=== PATIENT | female | born 1985 | race American Indian/Alaskan Native ===

== ENCOUNTER 2018-03-30 09:15 | Emergency (ER) | payer BC ==
[2018-03-30 09:42] VITALS: TEMP 98.9; O2SAT 100
[2018-03-30] MEDS ORDERED: Sodium Chloride 0.9% 1,000 ML IV ONE (09:53)
[2018-03-30 10:06] LABS: BASO # 0.1 K/uL (0.0-0.2); BASO % 0.5 % (0.0-2.0); EOS # 0.3 K/uL (0.0-0.7); EOS % 2.6 % (0.0-4.0); HEMOGLOBIN 13.2 g/dL (11.0-16.0); LYMPH # 1.3 K/uL (1.0-4.3); MEAN CELL VOLUME 94.2 fL (81.0-99.0); MEAN CORPUSCULAR HEMOGLOBIN 30.8 pg (27.0-31.0); MEAN CORPUSCULAR HGB CONC 32.7 g/dL (33.0-37.0); MEAN PLATELET VOLUME 7.1 fL (7.2-11.7); MONO # 0.6 K/uL (0.0-0.8); MONO % 5.5 % (0.0-10.0); NEUT # 8.9 K/uL (1.8-7.0); NEUT % 79.4 % (50.0-75.0); RBC 4.28 Mil/uL (3.80-5.20); RED CELL DISTRIBUTION WIDTH 13.5 % (11.5-14.5); WHITE BLOOD COUNT 11.2 K/uL (4.8-10.8)
--- NOTE | 2018-03-30 10:17 | RAD ---
HISTORY: CP COMPARISON: None available TECHNIQUE: Chest, one view. FINDINGS: LUNGS: No focal consolidation. Please note that chest x-ray has limited sensitivity for the detection of pulmonary masses. PLEURA: No significant pleural effusion identified. No definite pneumothorax . CARDIOVASCULAR: Heart size appears within normal limits. No significant atherosclerotic calcification present. OSSEOUS STRUCTURES: No acute osseous abnormality identified. VISUALIZED UPPER ABDOMEN: Unremarkable. OTHER FINDINGS: None. IMPRESSION: No focal consolidation.
[2018-03-30 10:18] LABS: ALB/GLOB RATIO 1.3 (1.0-2.1); ALBUMIN 4.5 g/dL (3.5-5.0); ALT/SGPT 17 U/L (9-52); AST/SGOT 19 U/L (14-36); BLOOD UREA NITROGEN 10 mg/dL (7-17); CALCIUM 8.9 mg/dl (8.6-10.4); GFR NON-AFRICAN AMERICAN > 60
[2018-03-30 10:30] LABS: CK-MB 0.57 ng/mL (0.0-3.38)
[2018-03-30] MEDS ORDERED: Sodium Chloride 0.9% 1,000 ML ONE (10:31)
--- NOTE | 2018-03-30 11:15 | C.PDOC ---
History Of Present Illness 33 y/o female presents to the ER complaining of epigastric abdominal pain which began approximately 8 am today. Patient describes the pain as burning and squeezing sensation. Patient reports that the pain radiates up to her chest. She notes that she has associated headache, nausea, and 3 episodes of vomiting. Patient denies having fever,chills, cough, CP,SOB, palpitations, diarrhea, dysuria, and hematuria. Time Seen by Provider: 03/30/18 09:20 Chief Complaint (Nursing): Abdominal Pain History Per: Patient History/Exam Limitations: no limitations Onset/Duration Of Symptoms: Hrs Current Symptoms Are (Timing): Still Present Severity: Moderate Past Medical History Reviewed: Historical Data, Nursing Documentation, Vital Signs Vital Signs: Last Vital Signs Temp 98.9 F 03/30/18 09:30 Pulse 69 03/30/18 09:30 Resp 20 03/30/18 09:30 BP 118/79 03/30/18 09:30 Pulse Ox 100 03/30/18 09:30 - Medical History PMH: Back Problems Other Surgeries: Hx of surgeries Family History: States: No Known Family Hx - Social History Hx Alcohol Use: Yes Hx Substance Use: No Review Of Systems Except As Marked, All Systems Reviewed And Found Negative. Constitutional: Negative for: Fever, Chills Cardiovascular: Negative for: Chest Pain, Palpitations Respiratory: Negative for: Cough, Shortness of Breath Gastrointestinal: Positive for: Nausea, Vomiting, Abdominal Pain. Negative for: Diarrhea Genitourinary: Negative for: Dysuria, Hematuria, Vaginal Discharge, Vaginal Bleeding Physical Exam - Physical Exam Appears: Other (mildly anxious, speaking in full sentences) Skin: Normal Color, Warm, Dry Head: Atraumatic, Normacephalic Eye(s): bilateral: Normal Inspection Nose: Normal Oral Mucosa: Moist Neck: Supple Chest: Symmetrical Cardiovascular: Rhythm Regular Respiratory: Normal Breath Sounds, No Rales, No Rhonchi, No Wheezing Gastrointestinal/Abdominal: Soft, Tenderness (mild epigastric and LUQ tenderness), No Guarding, No Rebound, Other (negative Payne's, negative McBurney's) Neurological/Psych: Oriented x3, Normal Speech ED Course And Treatment - Laboratory Results Result Diagrams: 03/30/18 10:02 03/30/18 10:02 Lab Results: Troponin I < 0.0120 ng/mL (0.00-0.120) 03/30/18 10:02 Total Bilirubin 0.7 mg/dL (0.2-1.3) 03/30/18 10:02 AST 19 U/L (14-36) 03/30/18 10:02 ALT 17 U/L (9-52) 03/30/18 10:02 Alkaline Phosphatase 72 U/L (38-126) 03/30/18 10:02 Total Protein 7.9 g/dL (6.3-8.3) 03/30/18 10:02 Albumin 4.5 g/dL (3.5-5.0) 03/30/18 10:02 Globulin 3.4 gm/dL (2.2-3.9) 03/30/18 10:02 Albumin/Globulin Ratio 1.3 (1.0-2.1) 03/30/18 10:02 O2 Sat by Pulse Oximetry: 100 (RA) Pulse Ox Interpretation: Normal - Other Rad CXR X-Ray: Viewed By Me, Read By Radiologist Interpretation: HISTORY: CP. COMPARISON: None available. TECHNIQUE: Chest, one view. FINDINGS: LUNGS: No focal consolidation. Please note that chest x- ray has limited sensitivity for the detection of pulmonary masses. PLEURA: No significant pleural effusion identified. No definite pneumothorax . CARDIOVASCULAR: Heart size appears within normal limits. No significant atherosclerotic calcification present. OSSEOUS STRUCTURES: No acute osseous abnormality identified. VISUALIZED UPPER ABDOMEN: Unremarkable. OTHER FINDINGS: None. IMPRESSION: No focal consolidation. Progress Note: Labs,EKG, and CXR ordered. Patient treated with Protonix IV, Zofran IV, and IV Fluids. Disposition Counseled Patient/Family Regarding: Studies Performed, Diagnosis, Need For Followup, Rx Given - Disposition Referrals: Ellis Parker MD [Staff Provider] - [facility] [Outside] Disposition: HOME/ ROUTINE Disposition Time: 12:20 Condition: STABLE Additional Instructions: FOLLOW UP WITH GI WITHIN 1 WEEK AVIOID SPICY/ACIDIC FOODS USE MEDICATION DAILY RETURN TO ER IF YOUR SYMPTOMS WORSEN Prescriptions: Pantoprazole [Protonix EC Tab] 20 mg PO DAILY #30 ect Instructions: Dyspepsia (DC) Forms: [employer] (Kazakh) Print Language: TUNISIAN - Clinical Impression Clinical Impression: Epigastric abdominal pain - Scribe Statement The provider has reviewed the documentation as recorded by the Scribe Summen Sharif Provider Attestation: All medical record entries made by the Briana were at my direction and personally dictated by me. I have reviewed the chart and agree that the record accurately reflects my personal performance of the history, physical exam, medical decision making, and the department course for this patient. I have also personally directed, reviewed, and agree with the discharge instructions and disposition.
[2018-03-30] MEDS ORDERED: Alum-Mag Hydrox-Simethicone Susp (30 mL) PO STA (11:37)
[2018-03-30] MEDS ORDERED: Aluminum Hydroxide/Magnesium Hydroxide Susp (30 mL) ONE (11:53)
[2018-03-30 12:43] VITALS: BP 106/73; PULSE 66; RESP 16
== END 2018-03-30 12:43 | disposition home or self-care (01) ==
LOC: C.ER 09:15
DX: R10.13 Epigastric pain (principal)
CPT/HCPCS: 71045; 80053; 82550; 82553; 84484; 85025; 93005; 96361; 96374; 96375; 99285; C9113; J1885; J2405; J7030